=== PATIENT | female | born 1940 | race Caucasian/White ===

== ENCOUNTER 2018-08-25 04:23 | Emergency (ER) | payer MEDICARE, OTHER ==
[2018-08-25 04:36] VITALS: BMI 26.5
--- NOTE | 2018-08-25 04:51 | PDOC ---
History of Present Illness - General Chief Complaint: Blood Pressure Problem Stated Complaint: HIGH BLOOD PRESSURE Time Seen by Provider: 08/25/18 04:35 - History of Present Illness Initial Comments: 77yo F with PMH of HTN, CHF, COPD presenting with hypertension. Patient states she felt nauseous and lightheaded around 6pm. She also had epigastric pain which she attributes to gas. Patient was concerned for high blood pressure and activated her life alert notification. EMS came and noted her blood pressure to be 182/92. Patient has taken her medicines at home as instructed by her primary care physician. Denies chest pain. She has shortness of breath at baseline. No headache, no vision changes. Not currently nauseous. Endorses urinary frequency , but no dysuria or hematuria. Past History - Past Medical History Allergies/Adverse Reactions: Allergies Allergy/AdvReac Type Severity Reaction Status Date / Time No Known Allergies Allergy Verified 08/25/18 04:35 - Suicide/Smoking/Psychosocial Hx Smoking History: Never smoked Have you smoked in the past 12 months: No Information on smoking cessation initiated: No Hx Alcohol Use: No Drug/Substance Use Hx: No Review of Systems - Review of Systems Comments:: Constitutional: no fever, no chills HEENT: no throat pain, no dysphagia Cardiovascular: no chest pain, no palpitations Respiratory: no cough, +shortness of breath Gastrointestinal: +abdominal pain, +nausea Genitourinary: no dysuria, +frequency Musculoskeletal: no myalgia, no arthralgia Skin: no rash, no itching Neurologic: no headache, no vision changes *Physical Exam - Vital Signs Last Vital Signs Temp Pulse Resp BP Pulse Ox 98.9 F 90 18 159/78 97 08/25/18 04:35 08/25/18 04:35 08/25/18 04:35 08/25/18 04:35 08/25/18 04:35 - Physical Exam Comments: General: Awake, alert, and fully oriented, in no acute distress Head: No signs of trauma Eyes: EOMI, sclera anicteric ENT: Moist mucus membranes Neck: Normal ROM, supple Lungs: Lungs clear, Normal breath sounds Cardio: Regular rhythm, S1 and S2 present Abdomen: Soft, nontender, nondistended. Ventral hernia noted. No guarding, no rebound, no masses Extremities: Normal range of motion, Distal pulses present. No edema. SKIN: Warm, Dry, normal turgor Neurologic: Cranial nerves II through XII grossly intact. Normal speech Moderate Sedation - Procedure Monitoring Vital Signs: Procedure Monitoring Vital Signs Temperature 98.9 F 08/25/18 04:35 Pulse Rate 90 08/25/18 04:35 Respiratory Rate 18 08/25/18 04:35 Blood Pressure 159/78 08/25/18 04:35 O2 Sat by Pulse Oximetry (%) 97 08/25/18 04:35 ED Treatment Course - LABORATORY CBC & Chemistry Diagram: 08/25/18 05:18 08/25/18 04:46 Medical Decision Making - Medical Decision Making 77yo F with PMH of HTN, CHF, COPD presenting with hypertension at home. DDX including but not limited to hypertensive urgency vs emergency, impaired renal function, UTI, ACS CBC, CMP, Cardiac Profile, UA, UCx 08/25/18 06:07 No anemia or leukocytosis Coags WNL Cr=0.8 Tpn <0.02 EKG: rate 76, WTc 461, NSR, LBBB (present on previous EKG) Workup thus far with no signs of end-organ damage- kidney function normal, negative troponin Pending UA 08/25/18 06:27 UA negative for infection Patient discharged 08/25/18 07:30 *DC/Admit/Observation/Transfer Diagnosis at time of Disposition: Hypertension Qualifiers: Hypertension type: unspecified Qualified Code(s): I10 - Essential (primary) hypertension - Discharge Dispostion Disposition: HOME Condition at time of disposition: Stable - Referrals Referrals: [facility] [place] [facility] [place] [Provider Group] - Patient Instructions Printed Discharge Instructions: DI for High Blood Pressure Additional Instructions: You came into the ED for high blood pressure. We performed blood work which was normal. Follow-up with a primary care doctor this week to discuss this ED visit and to further evaluate your high blood pressure. Your workup is not complete until you do so. Call and make an appointment at the number provided. We have referred you to the [facility]. Immediate medical attention is required if you have: any severe headaches, vision changes, develop high fevers, have chest pain or shortness of breath, or any other new or concerning symptoms. If you think you are having an emergency, call for emergency medical services or present to the emergency department right away. === Entraste en el servicio de urgencias por presin arterial marcelle. Realizamos un anlisis de kelly que era normal. Deidra un seguimiento con un mdico de atencin primaria esta semana para hablar sobre esta visita al ED y para evaluar ms a fondo garcia presin arterial marcelle. Garcia preparacin no est completa hasta que lo deidra. Llame y deidra yolanda dayna en el nmero proporcionado. Te hemos referido a la [facility]. Se requiere atencin mdica inmediata si tiene: algn dolor de romeo arely, cambios en la visin, desarrollo de fiebre marcelle, dolor en el pecho o falta de aire, o cualquier otro sntoma nuevo o relacionado. Si sepideh que tiene yolanda emergencia, llame para solicitar servicios mdicos de emergencia o presente al departamento de emergencias de inmediato. - Post Discharge Activity
--- NOTE | 2018-08-25 05:33 | PDOC ---
Attending Attestation - Resident Resident Name: Kat Gomes - ED Attending Attestation I have performed the following: I have examined & evaluated the patient, The case was reviewed & discussed with the resident, I agree w/resident's findings & plan, Exceptions are as noted - HPI HPI: 08/25/18 05:27 77-year-old female history of hypertension, COPD presents with elevated blood pressure. Patient reports that she was in her usual state health when approximately in the evening she started feeling somewhat dizzy. She felt somewhat nauseous but denied any chest pain or new shortness of breath. Denies recent illnesses but does endorse some mild chills. Also reports urinary frequency but denies dysuria. Reports some abdominal cramping but now resolved. Denies vomiting. Pt was concerned for her BP so called 911. - Physicial Exam PE: 08/25/18 05:31 GENERAL: Awake, alert, and fully oriented, in no acute distress HEAD: No signs of trauma EYES: EOMI, sclera anicteric, conjunctiva clear ENT: Auricles normal inspection, hearing grossly normal, nares patent NECK: Normal ROM, supple LUNGS: Breath sounds equal, clear to auscultation bilaterally. No wheezes, and no crackles HEART: Regular rate and rhythm, normal S1 and S2, no murmurs, rubs or gallops ABDOMEN: Soft, nontender, No guarding, no rebound. No masses EXTREMITIES: Normal range of motion, no edema. No clubbing or cyanosis. No cords, erythema, or tenderness NEUROLOGICAL: Cranial nerves II through XII grossly intact. Normal speech SKIN: Warm, Dry, normal turgor, no rashes or lesions noted. - Medical Decision Making 08/25/18 05:34 Vital Signs Temp Pulse Resp BP Pulse Ox 98.9 F 90 18 159/78 97 08/25/18 04:35 08/25/18 04:35 08/25/18 04:35 08/25/18 04:35 08/25/18 04:35 Pt with elevated BP in setting of urinary frequency. Will r/o UTI. BP now 159/78. No chest pain or SOB. Pt now asymptomatic. Will obtain labs, ECG, UA. If workup negative, pt can be d/c with PMD followup. 08/25/18 06:33 CBC, BMP 08/25/18 05:18 08/25/18 04:46 CMP Sodium 142 mmol/L (136-145) 08/25/18 04:46 Potassium 4.4 mmol/L (3.5-5.1) 08/25/18 04:46 Chloride 109 mmol/L (98-107) H 08/25/18 04:46 Carbon Dioxide 28 mmol/L (21-32) 08/25/18 04:46 Anion Gap 5 MMOL/L (8-16) L 08/25/18 04:46 BUN 12 mg/dL (7-18) 08/25/18 04:46 Creatinine 0.8 mg/dL (0.55-1.3) 08/25/18 04:46 Creat Clearance w eGFR > 60 (>60) 08/25/18 04:46 Random Glucose 101 mg/dL (74-106) 08/25/18 04:46 Calcium 9.8 mg/dL (8.5-10.1) 08/25/18 04:46 Total Bilirubin 0.2 mg/dL (0.2-1) 08/25/18 04:46 AST 16 U/L (15-37) 08/25/18 04:46 ALT 21 U/L (13-61) 08/25/18 04:46 Alkaline Phosphatase 124 U/L (45-117) H 08/25/18 04:46 Creatine Kinase 77 U/L (26-192) 08/25/18 04:46 Troponin I < 0.02 ng/ml (0.00-0.05) 08/25/18 04:46 Total Protein 7.5 g/dl (6.4-8.2) 08/25/18 04:46 Albumin 3.8 g/dl (3.4-5.0) 08/25/18 04:46 Heart Score/ECG Review #1 ECG reviewed & interpreted by me at: 04:35 08/25/18 05:33 NSR 76, LBBB, scarbossa negative, QTC 461 msec
[2018-08-25 05:46] LABS: BASO % 0.5 % (0-2.0); EOS % 5.7 % (0-4.5); HEMATOCRIT 38.4 % (32.4-45.2); HEMOGLOBIN 13.5 GM/dL (10.7-15.3); LYMPH % 44.6 % (8-40); MCH 29.6 pg (25.7-33.7); MCHC 35.1 g/dl (32.0-36.0); MEAN CELL VOLUME 84.2 fl (80-96); MEAN PLT VOLUME 8.1 fl (7.5-11.1); MONO % 5.6 % (3.8-10.2); NEUT % 43.6 % (42.8-82.8); PLATELET COUNT 266 K/MM3 (134-434); RBC 4.56 M/mm3 (3.60-5.2); WHITE BLOOD COUNT 7.2 K/mm3 (4.0-10.0)
[2018-08-25 06:13] LABS: ALBUMIN 3.8 g/dl (3.4-5.0); ALK PHOS 124 U/L (45-117); ANION GAP 5 MMOL/L (8-16); BILIRUBIN,TOTAL 0.2 mg/dL (0.2-1); BLOOD UREA NITROGEN 12 mg/dL (7-18); CALCIUM 9.8 mg/dL (8.5-10.1); CHLORIDE 109 mmol/L (98-107); CO2 28 mmol/L (21-32); CREATININE 0.8 mg/dL (0.55-1.3); GLUCOSE,RANDOM 101 mg/dL (74-106); POTASSIUM 4.4 mmol/L (3.5-5.1); SGOT/AST 16 U/L (15-37); SGPT/ALT 21 U/L (13-61); SODIUM 142 mmol/L (136-145); TOT PROT 7.5 g/dl (6.4-8.2)
[2018-08-25] MEDS ORDERED: SODIUM CHLORIDE 1,000 ML IV STA (06:13)
[2018-08-25 06:22] LABS: INR 0.89 (0.83-1.09); PROTHROMBIN TIME (PATIENT) 10.5 SEC (9.7-13.0)
[2018-08-25 06:38] VITALS: BP 153/74; PULSE 79; TEMP 98.4
[2018-08-25 06:51] LABS: URINE APPEARANCE CLEAR; URINE BILIRUBIN NEGATIVE (<2.0 mg/dL); URINE COLOR COLORLESS; URINE GLUCOSE (UA) NEGATIVE (NEGATIVE); URINE KETONE NEGATIVE (NEGATIVE); URINE LEUK ESTERASE NEGATIVE (NEGATIVE); URINE NITRITE NEGATIVE (NEGATIVE); URINE PROTEIN NEGATIVE (NEGATIVE); URINE UROBILINOGEN NEGATIVE mg/dL (0.2-1.0)
--- NOTE | 2018-08-25 11:50 | EKG ---
Test Reason : Blood Pressure : / mmHG Vent. Rate : 076 BPM Atrial Rate : 076 BPM P-R Int : 174 ms QRS Dur : 152 ms QT Int : 410 ms P-R-T Axes : 046 005 146 degrees QTc Int : 461 ms NORMAL SINUS RHYTHM LEFT BUNDLE BRANCH BLOCK ABNORMAL ECG WHEN COMPARED WITH ECG OF 16-DEC-2006 08:28, NO SIGNIFICANT CHANGE WAS FOUND Confirmed by TERRENCE GALAVIZ MD ([id number]) on 08/25/2018 11:50:02 AM Referred By: Confirmed By:TERRENCE GALAVIZ MD
== END 2018-08-25 09:09 | disposition home or self-care (01) ==
LOC: JER 04:23
PROC: 3E0337Z Introduction of Electrolytic and Water Balance Substance into Peripheral Vein, Percutaneous Approach (ICD-10-PCS; principal; 2018-08-25)
DX: I10 Essential (primary) hypertension (principal); I50.9 Heart failure, unspecified; J44.9 Chronic obstructive pulmonary disease, unspecified
CPT/HCPCS: 36415; 80053; 81003; 82550; 84484; 85025; 85610; 85730; 87086; 93005; 93010; 96360; 99281-25; J7030

== ENCOUNTER 2019-04-20 12:27 | Observation (INO) | payer MEDICARE, OTHER ==
--- NOTE | 2019-04-20 12:56 | PDOC ---
History of Present Illness - General Stated Complaint: SYNCOPE/NEAR SYNCOPE Time Seen by Provider: 04/20/19 12:36 - History of Present Illness Initial Comments: 04/20/19 13:18 78Fwith PMH of HTN, CHF, COPD presenting with episode of lightheadedness, loss of consciousness, diaphoresis and urine incontinence while sitting down at [employer] today. She started feeling lightheaded with subtle vision changes, then passed out for a few minutes before becoming aware of her surroundings again however she was unable to see anything when she did for a few minutes. Family noticed that her teeth were clenched and chattering during the time she was unresponsive. Now feels much better, no neurological focal deficit. Fingerstick in the field by EMS was 118 Over the past week she had 3 other episodes of presyncope. No history of seizures. Denies any headache, chest pain sob, weakness, dysuria, fever. Last travel by plane was 1 month ago to the . Was a smoker 7 years ago 1 pack a day. Family history of heart attack. No hyperlipidemia. Surgical history: Catheterization of the heart 10 years ago., and gallbladder surgery. Past History - Past Medical History Allergies/Adverse Reactions: Allergies Allergy/AdvReac Type Severity Reaction Status Date / Time No Known Allergies Allergy Verified 04/20/19 12:47 Home Medications: Ambulatory Orders Aspirin [Aspirin EC] 81 mg PO DAILY 04/20/19 Docusate Sodium [Docusate 100 mg] 100 mg PO DAILY 04/20/19 Furosemide [Lasix -] 20 mg PO DAILY 04/20/19 Loratadine 10 mg PO DAILY 04/20/19 Umeclidinium [place] [Incruse Ellipta] 62.5 mcg IH DAILY 04/20/19 Anemia: No COPD: Yes - Surgical History Gastric Stapling: No Neurologic Surgery: No - Psycho Social/Smoking Cessation Hx Smoking History: Never smoked Have you smoked in the past 12 months: No Hx Alcohol Use: No Drug/Substance Use Hx: No Review of Systems - Review of Systems Able to Perform ROS?: Yes Is the patient limited Mongolian proficient: Yes Constitutional: Yes: See HPI, Diaphoresis. No: Weakness HEENTM: Yes: See HPI, Recent change in vision Respiratory: No: Symptoms reported Cardiac (ROS): Yes: See HPI, Syncope ABD/GI: No: Symptoms Reported : No: Symptoms Reported Integumentary: No: Symptoms Reported Neurological: Yes: See HPI All Other Systems: Reviewed and Negative *Physical Exam - Physical Exam General Appearance: Yes: Obese. No: Apparent Distress, Alcohol on Breath, Intoxicated HEENT: positive: EOMI, YOLANDA, Normal ENT Inspection Respiratory/Chest: positive: Lungs Clear, Normal Breath Sounds. negative: Chest Tender, Respiratory Distress Cardiovascular: positive: Regular Rhythm, Regular Rate, S1, S2 Gastrointestinal/Abdominal: positive: Normal Bowel Sounds, Soft, Protuberent. negative: Tender Musculoskeletal: positive: Normal Inspection. negative: CVA Tenderness Extremity: positive: Normal Capillary Refill, Normal Inspection, Normal Range of Motion Integumentary: positive: Normal Color, Dry, Other (Positive skin tenting) Neurologic: positive: Fully Oriented, Alert, Normal Mood/Affect, Normal Response , Motor Strength 5/5 Heart Score/ECG Review - History History: Moderately suspicious - Electrocardiogram EKG: Normal - Age Age: >/= 65 - Risk Factors Risk Factors Heart Score: No Hx Hypercholesterolemia, Yes Hx Hypertension, No Hx Diabetes, Yes Smoking History, Yes Positive family hx of cardiac disease, Yes Hx Obesity Based on the list above the patient has:: >/=3 risk factors or Hx atherosclerotic disease ED Treatment Course - LABORATORY CBC & Chemistry Diagram: 04/20/19 13:00 04/20/19 13:00 Medical Decision Making - Medical Decision Making 04/20/19 13:36 78Fwith PMH of HTN, CHF, COPD presenting with episode of lightheadedness, loss of consciousness, diaphoresis and urine incontinence while sitting down at [employer] today. We are considering seizure vs head bleed, WI, dehydration/vasavagal episode. Suspicion of partial seizure due to teeth clenching/vision loss/urinary incontinence although short post-ictal period. Head bleed possible, will evaluate with ct head. Will send ekg, basic labs and trops and well as BNP as diaphoresis is concerning for possible WI + elevated heart score and cath history. cxr: Single apical lordotic view reveals a large heart, prominent paty, normal aorta and clear lung mccormick. The angles are sharp. The soft tissues are intact. There are some degenerative changes. There are no prior studies for comparison. Correlation recommended. EKG: Normal sinus rhythm, LBBB, negative Sgarbossa. Head CT pending 04/20/19 14:32 All labs within normal limits. Patient will be admitted to tele obs. 04/20/19 14:58 ct read: [id number] volume loss without CT evidence of acute intracranial pathology. Correlate increased to determine further evaluation and follow-up. Patient admitted to Dr. Joseph Consult placed to Dr. Gaming. Discharge - Discharge Information Problems reviewed: Yes Clinical Impression/Diagnosis: Syncope, Seizure Condition: Improved - Admission Yes - Follow up/Referral Referrals: ON STAFF,NOT [Primary Care Provider] - - Patient Discharge Instructions - Post Discharge Activity NIH Stroke Scale - Last Known Well Date/Time & Onset Date Last Known Well: 04/20/19 Time Last Known Well: 11:45 - Initial Evaluation Level of consciousness: Alert Ask patient the month and their age: Answers both correctly Ask patient to open & close eyes; make fist and let go: Obeys both correctly Best gaze (horizontal eye movement): Normal Visual field testing: No visual field loss Facial paresis (Show teeth/raise eyebrows/close eyes tight): Normal symmetrical movement Motor Function: Left Arm: Normal Motor Function: Right Arm: Normal (extends arm 90 (or 45) degrees for 10 seconds without drift Motor Function: Left Leg: Normal (extends leg 30 degrees for 5 seconds without drift) Motor Function: Right Leg: Normal (extends leg 30 degrees for 5 seconds without drift) Limb Ataxia: No ataxia Sensory(Use pinprick test arms,legs,trunk,face/side to side): Normal Best language (Describe picture, name items, read sentences): No Aphasia Dysarthria (read several words): Normal articulation Extinction and Inattention: No abnormality - Total Score NIH Stroke Scale Score: 0 tPA Exclusion Checklist 0-3hr - Time Elapsed Date last known well: 04/20/19 Time last known well: 11:45 Elaspsed time: Day(s) and 3 Hour(s) and 13 Minutes - Exclusion Criteria 0-3hr SBP greater than 185 or DBP greater than 110mmHg despite tx: No Recent IC/spinal surgery,head trauma or stroke w/in last 3mo: No Hx of previous IC hemorrhage, IC neoplasm, AVM or aneurysm: No Active internal bleeding: No Blding diathesis(low plt ct, inc PTT,INR>1.7 or use of NOAC): No Symptoms suggest subarachnoid hemorrhage: No CT demonstrates multilobar infarct(>1/3 cerebral hemiphere): No Arterial puncture at noncompressible site in previous 7 days: No - Relative Exclusion Criteria 0-3h Life expectancy <1yr/severe co-morbid illness/EMBLEM MAKER on admit: No : No Patient/family refused: No Rapid improvement: Yes Stroke severity too mild: Yes Recent acute WI (w/in previous 3 months): No Seizure at onset with postictal residual neuro impairments: No Major surgery or serious trauma w/in previous 14 days: No Recent GI or hemorrhage (w/in previous 21 days): No - Ineligibility reason(s) Reasons No tPA given: See reason(s) noted above
[2019-04-20 13:24] LABS: BASO % 0.5 % (0-2.0); EOS % 4.3 % (0-4.5); HEMATOCRIT 41.6 % (32.4-45.2); HEMOGLOBIN 14.6 GM/dL (10.7-15.3); LYMPH % 24.4 % (8-40); MCH 30.4 pg (25.7-33.7); MCHC 35.2 g/dl (32.0-36.0); MEAN CELL VOLUME 86.3 fl (80-96); NEUT % 64.8 % (42.8-82.8); PLATELET COUNT 322 K/MM3 (134-434); RBC 4.82 M/mm3 (3.60-5.2); RDW 14.5 % (11.6-15.6); WHITE BLOOD COUNT 11.2 K/mm3 (4.0-10.0)
[2019-04-20] MEDS ORDERED: SODIUM CHLORIDE 500 ML IV STA (13:24)
[2019-04-20 13:46] LABS: HYALINE CASTS 14 /lpf (0-8); URINE APPEARANCE CLOUDY; URINE BILIRUBIN NEGATIVE (NEGATIVE); URINE COLOR YELLOW; URINE GLUCOSE (UA) NEGATIVE (NEGATIVE); URINE KETONE NEGATIVE (NEGATIVE); URINE LEUK ESTERASE 1+ (NEGATIVE); URINE NITRITE NEGATIVE (NEGATIVE); URINE PROTEIN 1+ (NEGATIVE); URINE RBC 2 /hpf (0-4); URINE WBC 14 /hpf (0-5)
[2019-04-20 14:03] LABS: ALK PHOS 109 U/L (45-117); ANION GAP 5 MMOL/L (8-16); BILIRUBIN,TOTAL 0.4 mg/dL (0.2-1); CHLORIDE 107 mmol/L (98-107); CO2 28 mmol/L (21-32); GLUCOSE,RANDOM 111 mg/dL (74-106); POTASSIUM 4.2 mmol/L (3.5-5.1); SGOT/AST 18 U/L (15-37); SGPT/ALT 22 U/L (13-61); SODIUM 140 mmol/L (136-145); TOT PROT 7.8 g/dl (6.4-8.2)
--- NOTE | 2019-04-20 14:15 | PDOC ---
Attending Attestation - Resident Resident Name: Mahesh Kline - ED Attending Attestation I have performed the following: I have examined & evaluated the patient, The case was reviewed & discussed with the resident, I agree w/resident's findings & plan, Exceptions are as noted - HPI HPI: 04/20/19 14:10 78yo female with hx of htn presents for eval of a syncopal vs seizure activity while at [employer] today. Pt arrives with her family who states she slumped over in [employer] and became sweaty. Pt denies cp/sob. Denies kennedy. States she felt her vision get blurry prior to the episode. Per the family, her lips shook and her teeth were chattering. States she also loss control of her bladder and urinated herself. Pt denies abd pain. States decreased po intake this week because she just wasn't hungry. States 4 near syncopal dizzy episodes at home where she felt she would pass out, but never did. No other complaints. - Physicial Exam PE: 04/20/19 14:12 Gen: aaox3, nad heent: PERRL, EOMI, MMM, posterior pharynx clear neck: supple heart: +s1s2 reg lungs: cta b/l abd: soft, nt/nd +bs ext: no c/c/e neuro: cn ii-xii grossly intact, no focal deficits, muscle strength 5/5 UE and LE - Medical Decision Making 04/20/19 14:13 a/p: 78yo female with a syncopal vs seizure today while at [employer] -suspect more likely convulsive syncope with the 4 episodes of dizziness and near syncope this week -will send labs, head ct, cxr, ua -ekg -will start ivf hydration -all docs in [place] -will need obs vs admission for further eval -family updated and agree with the plan 04/20/19 14:14 no elevated wbc, neg trop 04/20/19 14:48 resident discussed the case with Dr. Madrigal who accepts pt to service 04/20/19 15:[address] boone Heart Score/ECG Review - ECG Intrepretation Comment:: 04/20/19 14:14 sinus at 71, lbbb, no acute st/t wave findings, unchanged from prior
[2019-04-20 14:19] LABS: MAGNESIUM 2.2 mg/dL (1.8-2.4)
--- NOTE | 2019-04-20 15:11 | HP ---
CHIEF COMPLAINT: multiple syncopes PCP:Haley Herman HISTORY OF PRESENT ILLNESS: 78yo female with hx of htn presents for eval of a syncopal vs seizure activity while at [employer] today. Pt arrives with her family who states she slumped over in [employer] and became sweaty. Pt denies cp/sob. Denies kennedy. States she felt her vision get blurry prior to the episode. Per the family, her lips shook and her teeth were chattering. States she also loss control of her bladder and urinated herself. Pt denies abd pain. States decreased po intake this week because she just wasn't hungry. States 4 near syncopal dizzy episodes at home where she felt she would pass out, but never did. No other complaints. In er her blood work shows pt has normal ct head and chest x rays but her ua is has mild uti ER course was notable for: (1)syncope (2)normal ct head (3)mild uti Recent Travel: none PAST MEDICAL HISTORY:copd,oa PAST SURGICAL HISTORY:none Social History: Smoking:none Alcohol:none Drugs: none Allergies No Known Allergies Allergy (Verified 04/20/19 12:47) HOME MEDICATIONS: Home Medications Medication Instructions Recorded Aspirin [Aspirin EC] 81 mg PO DAILY 04/20/19 Docusate Sodium [Docusate 100 mg] 100 mg PO DAILY 04/20/19 Furosemide [Lasix -] 20 mg PO DAILY 04/20/19 Loratadine 10 mg PO DAILY 04/20/19 Umeclidinium [place] [Incruse 62.5 mcg IH DAILY 04/20/19 Ellipta] REVIEW OF SYSTEMS CONSTITUTIONAL: Absent: fever, chills, diaphoresis, generalized weakness, malaise, loss of appetite, weight change HEENT: Absent: rhinorrhea, nasal congestion, throat pain, throat swelling, difficulty swallowing, mouth swelling, ear pain, eye pain, visual changes CARDIOVASCULAR: Absent: chest pain, syncope, palpitations, irregular heart rate, lightheadedness , peripheral edema RESPIRATORY: Absent: cough, shortness of breath, dyspnea with exertion, orthopnea, wheezing, stridor, hemoptysis GASTROINTESTINAL: Absent: abdominal pain, abdominal distension, nausea, vomiting, diarrhea, constipation, melena, hematochezia GENITOURINARY: Absent: dysuria, frequency, urgency, hesitancy, hematuria, flank pain, genital pain MUSCULOSKELETAL: Absent: myalgia, arthralgia, joint swelling, back pain, neck pain SKIN: Absent: rash, itching, pallor HEMATOLOGIC/IMMUNOLOGIC: Absent: easy bleeding, easy bruising, lymphadenopathy, frequent infections ENDOCRINE: Absent: unexplained weight gain, unexplained weight loss, heat intolerance, cold intolerance NEUROLOGIC: Absent: headache, focal weakness or paresthesias, dizziness, unsteady gait, seizure, mental status changes, present bladder incontinence or no bowel incontinence PSYCHIATRIC: Absent: anxiety, depression, suicidal or homicidal ideation, hallucinations. PHYSICAL EXAMINATION Vital Signs - 24 hr 04/20/19 04/20/19 12:36 13:15 Temperature 98 F Pulse Rate 75 Pulse Rate [ 65 Right side Sitting] Pulse Rate [ 63 Right side Standing] Pulse Rate [ 70 Right side Supine] Respiratory 18 Rate Blood Pressure 155/64 Blood Pressure 158/70 [Right side Sitting] Blood Pressure 142/73 [Right side Standing] Blood Pressure 157/64 [Right side Supine] O2 Sat by Pulse 100 Oximetry (%) GENERAL: Awake, alert, and fully oriented, in no acute distress. HEAD: Normal with no signs of trauma. EYES: Pupils equal, round and reactive to light, extraocular movements intact, sclera anicteric, conjunctiva clear. No lid lag. EARS, NOSE, THROAT: Ears normal, nares patent, oropharynx clear without exudates. Moist mucous membranes. NECK: Normal range of motion, supple without lymphadenopathy, JVD, or masses. LUNGS: Breath sounds equal, clear to auscultation bilaterally. No wheezes, and no crackles. No accessory muscle use. HEART: Regular rate and rhythm, normal S1 and S2 without murmur, rub or gallop. ABDOMEN: Soft, nontender, not distended, normoactive bowel sounds, no guarding, no rebound, no masses. No hepatomegaly or splenomegaly. MUSCULOSKELETAL: Normal range of motion at all joints. No bony deformities or tenderness. No CVA tenderness. UPPER EXTREMITIES: 2+ pulses, warm, well-perfused. No cyanosis. No clubbing. No peripheral edema. LOWER EXTREMITIES: 2+ pulses, warm, well-perfused. No calf tenderness. No peripheral edema. NEUROLOGICAL: Cranial nerves II-XII intact. Normal speech. Normal gait. PSYCHIATRIC: Cooperative. Good eye contact. Appropriate mood and affect. SKIN: Warm, dry, normal turgor, no rashes or lesions noted, normal capillary refill. Laboratory Results - last 24 hr 04/20/19 04/20/19 04/20/19 13:00 13:00 13:00 WBC 11.2 H RBC 4.82 Hgb 14.6 Hct 41.6 MCV 86.3 MCH 30.4 MCHC 35.2 RDW 14.5 Plt Count 322 D MPV 8.0 Absolute Neuts (auto) 7.3 Neutrophils % 64.8 D Lymphocytes % 24.4 D Monocytes % 6.0 Eosinophils % 4.3 Basophils % 0.5 Nucleated RBC % 0 Sodium 140 Potassium 4.2 Chloride 107 Carbon Dioxide 28 Anion Gap 5 L BUN 14.0 Creatinine 1.0 Est GFR (CKD-EPI)AfAm 61.62 Est GFR (CKD-EPI)NonAf 53.17 Random Glucose 111 H Lactic Acid Calcium 10.0 Magnesium 2.2 Total Bilirubin 0.4 AST 18 ALT 22 Alkaline Phosphatase 109 Troponin I < 0.02 B-Natriuretic Peptide Total Protein 7.8 Albumin 4.0 Urine Color Yellow Urine Appearance Cloudy Urine pH 6.0 Ur Specific [place] 1.020 Urine Protein 1+ H Urine Glucose (UA) Negative Urine Ketones Negative Urine Blood Negative Urine Nitrite Negative Urine Bilirubin Negative Urine Urobilinogen 1.0 Ur Leukocyte Esterase 1+ H Urine WBC (Auto) 14 Urine RBC (Auto) 2 Urine Casts (Auto) 14 U Epithel Cells (Auto) 22.0 Urine Bacteria (Auto) 858.0 04/20/19 04/20/19 13:00 13:00 WBC RBC Hgb Hct MCV MCH MCHC RDW Plt Count MPV Absolute Neuts (auto) Neutrophils % Lymphocytes % Monocytes % Eosinophils % Basophils % Nucleated RBC % Sodium Potassium Chloride Carbon Dioxide Anion Gap BUN Creatinine Est GFR (CKD-EPI)AfAm Est GFR (CKD-EPI)NonAf Random Glucose Lactic Acid 1.2 Calcium Magnesium Total Bilirubin AST ALT Alkaline Phosphatase Troponin I B-Natriuretic Peptide 233.4 Total Protein Albumin Urine Color Urine Appearance Urine pH Ur Specific [place] Urine Protein Urine Glucose (UA) Urine Ketones Urine Blood Urine Nitrite Urine Bilirubin Urine Urobilinogen Ur Leukocyte Esterase Urine WBC (Auto) Urine RBC (Auto) Urine Casts (Auto) U Epithel Cells (Auto) Urine Bacteria (Auto) ASSESSMENT/PLAN: 78yo female with hx of htn presents for eval of a syncopal vs seizure activity while at [employer] today. admit to tele and will do cardiac w/u and carotid sonogram. echocardiogram EEG r/o siezure copd restart incurse inhaller uti start on levaquin 250 m g daily chf h/o will resume the lasix H/o constipations babatunde restat on colace DVT PROPHYSLAXIS LOVENOX S/Q Visit type - Emergency Visit Emergency Visit: Yes ED Registration Date: 04/20/19 Care time: The patient presented to the Emergency Department on the above date and was hospitalized for further evaluation of their emergent condition. - New Patient This patient is new to me today: Yes Date on this admission: 04/20/19 - Critical Care Critical Care patient: No
[2019-04-20 16:42] VITALS: BMI 35.2
[2019-04-20] MEDS ORDERED: FLU VACCINE QUAD 60 MCG/0.5 ML (MDV 19-20) IM ONE (17:00)
--- NOTE | 2019-04-21 08:49 | PN ---
Teaching Attending Note Name of Resident: Raffi Whitaker ATTENDING PHYSICIAN STATEMENT I saw and evaluated the patient. I reviewed the resident's note and discussed the case with the resident. I agree with the resident's findings and plan as documented. SUBJECTIVE: OBJECTIVE: Vital Signs Period Temp Pulse Resp BP Sys/De Souza Pulse Ox Last 24 Hr 98 F-98.7 F 63-82 18-20 119-158/46-79 94-100 HEART: LUNGS: ABDOMEN: EXTREMITIES: Laboratory Results - last 24 hr 04/20/19 04/20/19 04/20/19 13:00 13:00 13:00 WBC 11.2 H RBC 4.82 Hgb 14.6 Hct 41.6 MCV 86.3 MCH 30.4 MCHC 35.2 RDW 14.5 Plt Count 322 D MPV 8.0 Absolute Neuts (auto) 7.3 Neutrophils % 64.8 D Lymphocytes % 24.4 D Monocytes % 6.0 Eosinophils % 4.3 Basophils % 0.5 Nucleated RBC % 0 Sodium 140 Potassium 4.2 Chloride 107 Carbon Dioxide 28 Anion Gap 5 L BUN 14.0 Creatinine 1.0 Est GFR (CKD-EPI)AfAm 61.62 Est GFR (CKD-EPI)NonAf 53.17 Random Glucose 111 H Lactic Acid Calcium 10.0 Magnesium 2.2 Total Bilirubin 0.4 AST 18 ALT 22 Alkaline Phosphatase 109 Troponin I < 0.02 B-Natriuretic Peptide Total Protein 7.8 Albumin 4.0 Urine Color Yellow Urine Appearance Cloudy Urine pH 6.0 Ur Specific [place] 1.020 Urine Protein 1+ H Urine Glucose (UA) Negative Urine Ketones Negative Urine Blood Negative Urine Nitrite Negative Urine Bilirubin Negative Urine Urobilinogen 1.0 Ur Leukocyte Esterase 1+ H Urine WBC (Auto) 14 Urine RBC (Auto) 2 Urine Casts (Auto) 14 U Epithel Cells (Auto) 22.0 Urine Bacteria (Auto) 858.0 04/20/19 04/20/19 13:00 13:00 WBC RBC Hgb Hct MCV MCH MCHC RDW Plt Count MPV Absolute Neuts (auto) Neutrophils % Lymphocytes % Monocytes % Eosinophils % Basophils % Nucleated RBC % Sodium Potassium Chloride Carbon Dioxide Anion Gap BUN Creatinine Est GFR (CKD-EPI)AfAm Est GFR (CKD-EPI)NonAf Random Glucose Lactic Acid 1.2 Calcium Magnesium Total Bilirubin AST ALT Alkaline Phosphatase Troponin I B-Natriuretic Peptide 233.4 Total Protein Albumin Urine Color Urine Appearance Urine pH Ur Specific [place] Urine Protein Urine Glucose (UA) Urine Ketones Urine Blood Urine Nitrite Urine Bilirubin Urine Urobilinogen Ur Leukocyte Esterase Urine WBC (Auto) Urine RBC (Auto) Urine Casts (Auto) U Epithel Cells (Auto) Urine Bacteria (Auto) Current Medications Generic Name Dose Route Start Last Admin Trade Name Freq PRN Reason Stop Dose Admin Aspirin 81 mg 04/21/19 10:00 Ecotrin - PO DAILY [facility] Docusate Sodium 100 mg 04/21/19 10:00 Colace - PO DAILY [facility] Enoxaparin Sodium 40 mg 04/21/19 10:00 Lovenox - SQ DAILY [facility] Furosemide 20 mg 04/21/19 10:00 Lasix - PO DAILY [facility] Levofloxacin 250 mg 04/20/19 15:15 04/21/19 06:00 Levaquin - PO 250 mg DAILY@0600 [facility] Administration Loratadine 10 mg 04/21/19 10:00 Claritin - PO DAILY [facility] Non-Formulary Medication 62.5 mcg 04/21/19 10:00 Umeclidinium [place] [Incruse Ellipta] IH DAILY [facility] ASSESSMENT AND PLAN: This is an 78 year old woman with a history of HTN, CHF, COPD who presented to the ED after passing out while sitting in [employer]. The episode was associated with urinary incontinence and was preceded by lightheadedness. 1. Syncope, possible seizure 2. Possible UTI 3. HTN 4. CHF 5. COPD 6. Obesity with BMI 35.2
[2019-04-21] MEDS ORDERED: PATIENT'S OWN MEDICATION (NON-FORMULARY) (Umeclidinium Bromide [Incruse Ellipta] 62.5 MCG) IH SCH (10:00)
[2019-04-21] MEDS ORDERED: FUROSEMIDE 20 MG TABLET (FP) PO SCH (10:00)
[2019-04-21] MEDS ORDERED: LORATADINE 10 MG PO SCH (10:00)
--- NOTE | 2019-04-21 10:07 | EKG ---
Test Reason : Blood Pressure : / mmHG Vent. Rate : 071 BPM Atrial Rate : 071 BPM P-R Int : 176 ms QRS Dur : 166 ms QT Int : 432 ms P-R-T Axes : 037 006 146 degrees QTc Int : 469 ms NORMAL SINUS RHYTHM LEFT BUNDLE BRANCH BLOCK ABNORMAL ECG WHEN COMPARED WITH ECG OF 25-AUG-2018 04:32, NO SIGNIFICANT CHANGE WAS FOUND Confirmed by PEDRO STERLING MD ([id number]) on 04/21/2019 10:06:57 AM Referred By: Confirmed By:PEDRO STERLING MD
--- NOTE | 2019-04-21 10:16 | PN ---
Physical Exam: SUBJECTIVE: Patient seen and examined. She is feeling better today. She denies dizziness, palpitations, chest pain. OBJECTIVE: Vital Signs Period Temp Pulse Resp BP Sys/De Souza Pulse Ox Last 24 Hr 98 F-98.7 F 63-82 18-20 119-158/46-79 94-100 GENERAL: The patient is awake, alert, and fully oriented, in no acute distress. LUNGS: Breath sounds equal, clear to auscultation bilaterally, no wheezes, no crackles, no accessory muscle use. HEART: Regular rate and rhythm, S1, S2 without murmur, rub or gallop. ABDOMEN: Obese, soft, nontender, nondistended, normoactive bowel sounds, no guarding, no rebound, no hepatosplenomegaly, no masses. EXTREMITIES: 2+ pulses, warm, well-perfused, no edema. NEUROLOGICAL: Cranial nerves II through XII grossly intact. Normal speech, strength 5/5 in all extremities. SKIN: Warm, dry, poor turgor, no rashes or lesions noted Laboratory Results - last 24 hr 04/20/19 04/20/19 04/20/19 13:00 13:00 13:00 WBC 11.2 H RBC 4.82 Hgb 14.6 Hct 41.6 MCV 86.3 MCH 30.4 MCHC 35.2 RDW 14.5 Plt Count 322 D MPV 8.0 Absolute Neuts (auto) 7.3 Neutrophils % 64.8 D Lymphocytes % 24.4 D Monocytes % 6.0 Eosinophils % 4.3 Basophils % 0.5 Nucleated RBC % 0 Sodium 140 Potassium 4.2 Chloride 107 Carbon Dioxide 28 Anion Gap 5 L BUN 14.0 Creatinine 1.0 Est GFR (CKD-EPI)AfAm 61.62 Est GFR (CKD-EPI)NonAf 53.17 Random Glucose 111 H Lactic Acid Calcium 10.0 Magnesium 2.2 Total Bilirubin 0.4 AST 18 ALT 22 Alkaline Phosphatase 109 Troponin I < 0.02 B-Natriuretic Peptide Total Protein 7.8 Albumin 4.0 Urine Color Yellow Urine Appearance Cloudy Urine pH 6.0 Ur Specific [place] 1.020 Urine Protein 1+ H Urine Glucose (UA) Negative Urine Ketones Negative Urine Blood Negative Urine Nitrite Negative Urine Bilirubin Negative Urine Urobilinogen 1.0 Ur Leukocyte Esterase 1+ H Urine WBC (Auto) 14 Urine RBC (Auto) 2 Urine Casts (Auto) 14 U Epithel Cells (Auto) 22.0 Urine Bacteria (Auto) 858.0 04/20/19 04/20/19 13:00 13:00 WBC RBC Hgb Hct MCV MCH MCHC RDW Plt Count MPV Absolute Neuts (auto) Neutrophils % Lymphocytes % Monocytes % Eosinophils % Basophils % Nucleated RBC % Sodium Potassium Chloride Carbon Dioxide Anion Gap BUN Creatinine Est GFR (CKD-EPI)AfAm Est GFR (CKD-EPI)NonAf Random Glucose Lactic Acid 1.2 Calcium Magnesium Total Bilirubin AST ALT Alkaline Phosphatase Troponin I B-Natriuretic Peptide 233.4 Total Protein Albumin Urine Color Urine Appearance Urine pH Ur Specific [place] Urine Protein Urine Glucose (UA) Urine Ketones Urine Blood Urine Nitrite Urine Bilirubin Urine Urobilinogen Ur Leukocyte Esterase Urine WBC (Auto) Urine RBC (Auto) Urine Casts (Auto) U Epithel Cells (Auto) Urine Bacteria (Auto) Active Medications Generic Name Dose Route Start Last Admin Trade Name Freq PRN Reason Stop Dose Admin Aspirin 81 mg 04/21/19 10:00 Ecotrin - PO DAILY [facility] Docusate Sodium 100 mg 04/21/19 10:00 Colace - PO DAILY [facility] Enoxaparin Sodium 40 mg 04/21/19 10:00 Lovenox - SQ DAILY [facility] Furosemide 20 mg 04/21/19 10:00 Lasix - PO DAILY [facility] Levofloxacin 250 mg 04/20/19 15:15 04/21/19 06:00 Levaquin - PO 250 mg DAILY@0600 [facility] Administration Loratadine 10 mg 04/21/19 10:00 Claritin - PO DAILY [facility] Non-Formulary Medication 62.5 mcg 04/21/19 10:00 Umeclidinium [place] [Incruse Ellipta] IH DAILY [facility] ASSESSMENT/PLAN: This is an 78 year old woman with a history of HTN, CHF, COPD who presented to the ED after passing out while sitting in [employer]. The episode was associated with urinary incontinence and was preceded by lightheadedness. 1. Syncope - Doubt seizure - Continue telemetry monitoring - Head CT shows mild to moderate volume loss - Echo, carotid dopplers pending 2. Possible UTI - Continue empiric Levaquin - Urine culture not sent 3. Dehydration - Start IV fluid and hold Lasix 4. HTN - Hold Lasix secondary to dehydration 5. CHF, probable chronic diastolic heart failure - Stable - Hold Lasix secondary to dehydration 6. COPD - Stable - Continue Incruse 6. Obesity with BMI 35.2 Visit type - Emergency Visit Emergency Visit: Yes ED Registration Date: 04/20/19 Care time: The patient presented to the Emergency Department on the above date and was hospitalized for further evaluation of their emergent condition. - New Patient This patient is new to me today: Yes Date on this admission: 04/21/19 - Critical Care Critical Care patient: No - Discharge Referral Referred to [facility] Med P.C.: No
--- NOTE | 2019-04-21 10:21 | CON.CARD ---
Consult Consult Specialty:: Cardiology Referred by:: Hospitalist Medicine Reason for Consultation:: Syncope - History of Present Illness Chief Complaint: Syncope History of Present Illness: 78yo female with hx of htn presents for after syncopal episode, family reported she slumped over in [employer] and became sweaty. Pt denies cp/sob, palpitations, orthopnea, PND or LE edema. Denies kennedy. States she felt her vision get blurry prior to the episode. Per the family, her lips shook and her teeth were chattering. States she also loss control of her bladder and urinated herself. Pt denies abd pain. States decreased po intake this week because she just wasn' t hungry. States 4 near syncopal dizzy episodes at home where she felt she would pass out, but never did. No other complaints. - History Source History Provided By: Family Member Limitations to Obtaining History: Language Barrier - Past Medical History Cardio/Vascular: Yes: CHF, HTN Pulmonary: Yes: COPD - Alcohol/Substance Use Hx Alcohol Use: No - Smoking History Smoking history: Former smoker Have you smoked in the past 12 months: No Aproximately how many cigarettes per day: 12 If you are a former smoker, when did you quit?: 8 yrs ago Home Medications - Allergies Allergies/Adverse Reactions: Allergies Allergy/AdvReac Type Severity Reaction Status Date / Time No Known Allergies Allergy Verified 04/20/19 12:47 - Home Medications Home Medications: Ambulatory Orders Aspirin [Aspirin EC] 81 mg PO DAILY 04/20/19 Docusate Sodium [Docusate 100 mg] 100 mg PO DAILY 04/20/19 Furosemide [Lasix -] 20 mg PO DAILY 04/20/19 Loratadine 10 mg PO DAILY 04/20/19 Umeclidinium [place] [Incruse Ellipta] 62.5 mcg IH DAILY 04/20/19 Review of Systems - Review of Systems Neurological: reports: Dizziness, Syncope Vital Signs: Vital Signs Temperature 98.7 F 04/21/19 00:56 Pulse Rate 64 04/21/19 00:56 Respiratory Rate 20 04/21/19 00:56 Blood Pressure 136/55 L 04/21/19 00:56 O2 Sat by Pulse Oximetry (%) 96 04/20/19 20:10 Constitutional: Yes: No Distress, Calm Neck: Yes: Supple Respiratory: Yes: Regular, CTA Bilaterally Gastrointestinal: Yes: Normal Bowel Sounds, Soft Cardiovascular: Yes: Regular Rate and Rhythm JVD: No Carotid Bruit: No Heart Sounds: Yes: S1, S2 Murmur: Yes: Systolic Murmur, Grade 1 Edema: No - Other Data Labs, Other Data: CBC, BMP 04/20/19 13:00 04/20/19 13:00 Troponin, BNP 04/20/19 04/20/19 13:00 13:00 Troponin I < 0.02 B-Natriuretic Peptide 233.4 Troponin, BNP 04/20/19 04/20/19 13:00 13:00 Troponin I < 0.02 B-Natriuretic Peptide 233.4 NSR @ 71 LBBB similar to previous Ejection Fraction %: LVEF > or = 40 % Imaging - Results Chest X-ray: Report Reviewed (NAD) Cat Scan: Report Reviewed (No acute changes) Ultrasound: Pending Problem List - Problems (1) COPD (chronic obstructive pulmonary disease) Code(s): J44.9 - CHRONIC OBSTRUCTIVE PULMONARY DISEASE, UNSPECIFIED Qualifiers: COPD type: unspecified COPD Qualified Code(s): J44.9 - Chronic obstructive pulmonary disease, unspecified (2) Syncope Code(s): R55 - SYNCOPE AND COLLAPSE Qualifiers: Syncope type: vasovagal syncope Qualified Code(s): R55 - Syncope and collapse (3) Hypertensive heart disease Code(s): I11.9 - HYPERTENSIVE HEART DISEASE WITHOUT HEART FAILURE Qualifiers: Heart failure presence: without heart failure Qualified Code(s): I11.9 - Hypertensive heart disease without heart failure Assessment/Plan 04/21/2019 Echo: Normal LV and RV size and fxn LVEF 55-60%, abnl LV compliance, normal atrial sizes, mild-mod MR, mod TR RVSP 42 mmHg 1. Syncope with typical prodromal symptoms c/w neurocardiogenic syncope 2. Diastolic dysfunction, euvolemic 3. HTN heart disease 4. COPD P:1. Check orthostatic VS, monitor telemetry for pause, bradyarrhythmia, f/u carotid US 2. D/c Lasix given euvolemia, start Toprol XL 25 qd as hemodynamics tolerate 3. Consider upright tilt testing as outpatient 4. Patient previously f/u with Dr. Xiao Paz for cardiology, but prefers to f/u with our local office upon d/c 5. Thank you for consultative opportunity
--- NOTE | 2019-04-21 11:32 | ECHO ---
Name: JUSTIN DUARTE, CAMILA Exam:Adult Echocardiogram Study Date: 04/21/2019 10:03 AM Age: 78 yrs MMode/2D Measurements & Calculations IVSd: 1.2 cm Ao root diam: 2.9 cm LVIDd: 3.8 cm LA dimension: 3.3 cm LVIDs: 2.7 cm LVPWd: 1.0 cm LVPWs: 1.4 cm EDV(Teich): 63.3 ml ESV(Teich): 26.1 ml LVOT diam: 1.9 cm LAV (MOD-bp): 43.7 ml RV S Carlos Eduardo: 10.1 cm/sec Doppler Measurements & Calculations MV E max carlos eduardo: 62.1 cm/sec Ao V2 max: 157.5 cm/sec MV A max carlos eduardo: 94.1 cm/sec Ao max P.9 mmHg MV E/A: 0.66 TAYLOR(V,D): 2.1 cm2 MV dec time: 0.15 sec LV V1 max P.3 mmHg TR max carlos eduardo: 258.2 cm/sec LV V1 max: 115.0 cm/sec TR max P.5 mmHg PA V2 max: 114.0 cm/sec Med Peak E' Carlos Eduardo: 3.7 cm/sec PA max P.2 mmHg Med E/e': 16.8 Lat Peak E' Carlos Eduardo: 4.2 cm/sec Lat E/e': 14.6 Procedure A complete two-dimensional transthoracic echocardiogram was performed (2D, M-mode, Doppler and color flow Doppler). Left Ventricle The left ventricle is normal in size. Left ventricular systolic function is normal. Ejection Fraction = 55- 60%. LV diastology reveals impaired relaxation with elevated filling pressure (E/E' 17). No regional wall motion abnormalities noted. Right Ventricle The right ventricle is normal size. The right ventricular systolic function is normal. RV systolic TD I is 10 cm/s. Atria The left atrial size is normal. Right atrial size is normal. Mitral Valve The mitral valve is normal in structure and function. There is mild to moderate mitral regurgitation. Tricuspid Valve The tricuspid valve is normal in structure and function. There is moderate tricuspid regurgitation. P ulmonary artery systolic pressure is at least 42 mmHg if RA pressure is assumed 3 mmHg. Aortic Valve There is mild aortic sclerosis.;. No aortic regurgitation is present. Pulmonic Valve The pulmonic valve is not well visualized. Great Vessels The aortic root is normal size. Pericardium/Pleura There is no pericardial effusion. Interpretation Summary The left ventricle is normal in size. Left ventricular systolic function is normal. No regional wall motion abnormalities noted. Ejection Fraction = 55-60%. LV diastology reveals impaired relaxation with elevated filling pressure (E/E' 17) The right ventricular systolic function is normal. The left atrial size is normal. Right atrial size is normal. There is mild to moderate mitral regurgitation. There is moderate tricuspid regurgitation. Pulmonary artery systolic pressure is at least 42 mmHg if RA pressure is assumed 3 mmHg There is mild aortic sclerosis. There is no pericardial effusion. Previous study is not available for comparison Cedric Ahumada MD 04/21/2019 11:31 AM
--- NOTE | 2019-04-21 12:25 | CONSULT ---
Consult - text type - Consultation Consultation Note: NEUROLOGY CONSULT GREATLY APPRECIATED: Events reviewed. Cardiology consult read and appreciated. This 78 yo RH woman lives alone. Son Raul at bedside aiding in translation. Admitted after possible syncopal episode while seated at [employer]. Describes prodromal "lightheadedness" and "vision going dim." Does not recall how long she was "passed out" but remembers many parishioners coming to her aide, talking to her and then, getting into an ambulance. Also notes intermittent chest pains and palpitations, "but I take a medication for that." Head CT (reviewed): Mild cerebral atrophy with ex vacuo ventricular dilation. WBC= 11.2K UA WBC= 14 - on PO Levaquin PAVAN: Cor reg. No bruit. Neck supple. BP 150/70s without orthostatic changes. NEURO: Awake, alert, responsive. OX [facility]. Month May corrected to --. No president. MUD. Poor reversals. 07/21 recall 2 3 min. + glabella, snout, grasps CNII-CNXII: EOM's full without nystagmus. No facial. Gag ok. Motor: No drift or tremor. Sl. reduction MONIKA's on L. Min cogwheel L with reinforcement. Strength normal. Reflexes brisk throughout, except AJ's. Plantars silent. Coordination: No FTN dystaxia. Sensation: Min reduced vibration toes. Romberg - Gait: Sl flexed, sl shuffle. Can walk on heels, toes with assist x1. Impression: Syncopal episode. R/O arrythmia. Mild B/L Cerebral Dysfunction (OMS, chronic) Possibly worsened by Toxic-Metabolic Encephalopathy (UTI) Suggest: Agree with telemetry Check orthostatic BP's. Continue antibiotics and hydration Check TSH, B12, RPR PT eval for gait safety Trial Management Associate for home safety check Thank you very much, Gavin Gaming MD
[2019-04-21] MEDS: DOCUSATE SODIUM 100 MG CAPSULE (FP) PO SCH (12:49)
[2019-04-21] MEDS: LORATADINE 10 MG TABLET PO SCH (12:49)
[2019-04-21] MEDS: ASPIRIN COATED 81 MG TABLET.EC PO SCH (12:50)
[2019-04-21] MEDS: ENOXAPARIN NA (PORCINE) 40 MG/0.4 ML DISP.SYRIN SQ SCH (12:50)
[2019-04-21] MEDS ORDERED: SODIUM CHLORIDE 0.45% 1,000 ML IV SCH (16:45)
[2019-04-22 06:25] VITALS: BP 145/63; PULSE 70; TEMP 98.2
[2019-04-22 06:30] LABS: HEMATOCRIT 36.1 % (32.4-45.2); HEMOGLOBIN 12.5 GM/dL (10.7-15.3); MCH 29.1 pg (25.7-33.7); MCHC 34.4 g/dl (32.0-36.0); MEAN CELL VOLUME 84.6 fl (80-96); PLATELET COUNT 273 K/MM3 (134-434); RBC 4.27 M/mm3 (3.60-5.2); RDW 14.4 % (11.6-15.6)
[2019-04-22 07:34] LABS: BLOOD UREA NITROGEN 12.4 mg/dL (7-18); CALCIUM 8.9 mg/dL (8.5-10.1); CREATININE 0.8 mg/dL (0.55-1.3); POTASSIUM 3.9 mmol/L (3.5-5.1)
--- NOTE | 2019-04-22 08:03 | DS ---
Physical Exam: SUBJECTIVE: Pt without any symptoms overnight or today. Pt feels better. Has not been taking her home medications noted in her purse at bedside. Pt is ready to go home. OBJECTIVE: Vital Signs Period Temp Pulse Resp BP Sys/De Souza Pulse Ox Last 24 Hr 97.9 F-98.7 F 65-81 20-20 127-177/58-93 97-98 PHYSICAL EXAM GENERAL: The patient is awake, alert, and fully oriented, in no acute distress. HEENT: NC/AT, FABIAN, EOMI without nystagmus, MMM. NECK: No JVD LUNGS: CTA bilaterally, no wheezes, no crackles, no accessory muscle use. HEART: RRR, S1, S2 without murmur, rub or gallop. ABDOMEN: Soft, nontender, nondistended, normoactive bowel sounds, no guarding EXTREMITIES: 2+ DP pulses, warm, well-perfused, no edema. PSYCH: Normal mood, normal affect. SKIN: Warm, dry, no rashes or lesions noted. LABS Laboratory Results - last 24 hr 04/22/19 04/22/19 05:36 05:36 WBC 7.0 RBC 4.27 Hgb 12.5 Hct 36.1 MCV 84.6 MCH 29.1 MCHC 34.4 RDW 14.4 Plt Count 273 MPV 8.0 Sodium 141 Potassium 3.9 Chloride 110 H Carbon Dioxide 27 Anion Gap 5 L BUN 12.4 Creatinine 0.8 Est GFR (CKD-EPI)AfAm 80.70 Est GFR (CKD-EPI)NonAf 69.63 Random Glucose 88 Calcium 8.9 Vitamin B12 370 TSH 0.95 Imaging: Echocardiogram: Interpretation Summary The left ventricle is normal in size. Left ventricular systolic function is normal. No regional wall motion abnormalities noted. Ejection Fraction = 55-60%. LV diastology reveals impaired relaxation with elevated filling pressure (E/E' 17) The right ventricular systolic function is normal. The left atrial size is normal. Right atrial size is normal. There is mild to moderate mitral regurgitation. There is moderate tricuspid regurgitation. Pulmonary artery systolic pressure is at least 42 mmHg if RA pressure is assumed 3 mmHg There is mild aortic sclerosis. There is no pericardial effusion. Head CT: Impression: [id number] volume loss without CT evidence of acute intracranial pathology. Correlate increased to determine further evaluation and follow-up. Carotid Duplex: IMPRESSION: Mild atherosclerotic disease with no evidence of hemodynamically significant stenoses HOSPITAL COURSE: Date of Admission:04/20/19 Date of Discharge: 04/22/19 Pt admitted on 04/20/19 due to a syncopal episode. Pt was monitored on telemetry without any notable alarms. Carotid dopplers and echocardiogram was performed which also resulted in nonsignificant findings as above. Pt's Lasix was held during her hospitalization and she was hydrated with IV NS. Pt was evaluated by Cardiology and neurology who felt this was likely dehydration related. Pt is being discharged with instructions to stop her Lasix and use Metoprolol 25mg qdaily for heart rate control. Minutes to complete discharge: 33 Discharge Summary Problems reviewed: Yes Reason For Visit: SEIZURE\SYNCOPE Current Active Problems COPD (chronic obstructive pulmonary disease) (Acute) Hypertensive heart disease (Acute) Seizure (Acute) Syncope (Acute) Condition: Improved - Instructions Diet, Activity, Other Instructions: You were seen here for your dizziness and fainting. You had a heart monitor while here and an ultrasound of your heart which showed everything is normal. You were assessed by neurology and cardiology and they believe most of your symptoms are related to likely dehydration MEDICATIONS: Please hold your Lasix until you visit your primary care doctor in 3-5 days You were started on Metoprolol 25mg DAILY for your heart dysfunction Continue the rest of medications as you have been before. Follow-up: Please follow-up with Dr. Herman in 3-5 days to update them on your care and regarding your lasix Please follow-up with Dr. 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 for a possible long- term Holter Monitor Referrals: Haley Herman [Other] (3-5 days) Cedric Ahumada MD [Staff Physician] - Disposition: HOME - Home Medications Comprehensive Discharge Medication List: Ambulatory Orders Aspirin [Aspirin EC] 81 mg PO DAILY 04/20/19 Docusate Sodium [Docusate 100 mg] 100 mg PO DAILY 04/20/19 Loratadine 10 mg PO DAILY 04/20/19 Umeclidinium [place] [Incruse Ellipta] 62.5 mcg IH DAILY 04/20/19 Metoprolol Succinate [Toprol XL -] 25 mg PO DAILY #30 tab.sr.24h 04/22/19 levoFLOXacin [Levaquin -] 250 mg PO DAILY@0600 #5 tablet 04/22/19 This patient is new to me today: Yes Date on this admission: 04/22/19 Emergency Visit: Yes ED Registration Date: 04/20/19 Care time: The patient presented to the Emergency Department on the above date and was hospitalized for further evaluation of their emergent condition. Critical Care patient: No - Discharge Referral Referred to [facility] Med [facility] No ATTENDING PHYSICIAN STATEMENT I saw and evaluated the patient. I reviewed the resident's note and discussed the case with the resident. I agree with the resident's findings and plan as documented. SUBJECTIVE: OBJECTIVE: ASSESSMENT AND PLAN:
--- NOTE | 2019-04-22 08:26 | PN ---
Teaching Attending Note Name of Resident: Raffi Whitaker ATTENDING PHYSICIAN STATEMENT I saw and evaluated the patient. I reviewed the resident's note and discussed the case with the resident. I agree with the resident's findings and plan as documented. SUBJECTIVE: Patient has no complaints. OBJECTIVE: Vital Signs Period Temp Pulse Resp BP Sys/De Souza Pulse Ox Last 24 Hr 97.9 F-98.7 F 65-81 20-20 127-177/58-93 97-98 HEART: S1S2, RRR LUNGS: Clear ABDOMEN: Obese, soft, non-tender, non-distended, normal BS EXTREMITIES: No edema Laboratory Results - last 24 hr 04/22/19 04/22/19 05:36 05:36 WBC 7.0 RBC 4.27 Hgb 12.5 Hct 36.1 MCV 84.6 MCH 29.1 MCHC 34.4 RDW 14.4 Plt Count 273 MPV 8.0 Sodium 141 Potassium 3.9 Chloride 110 H Carbon Dioxide 27 Anion Gap 5 L BUN 12.4 Creatinine 0.8 Est GFR (CKD-EPI)AfAm 80.70 Est GFR (CKD-EPI)NonAf 69.63 Random Glucose 88 Calcium 8.9 Vitamin B12 370 TSH 0.95 Current Medications Generic Name Dose Route Start Last Admin Trade Name Freq PRN Reason Stop Dose Admin Aspirin 81 mg 04/21/19 10:00 04/21/19 12:50 Ecotrin - PO 81 mg DAILY ABRAM Administration Docusate Sodium 100 mg 04/21/19 10:00 04/21/19 12:49 Colace - PO 100 mg DAILY ABRAM Administration Enoxaparin Sodium 40 mg 04/21/19 10:00 04/21/19 12:50 Lovenox - SQ 40 mg DAILY ABRAM Administration Sodium Chloride 1,000 mls @ 42 mls/hr 04/21/19 16:45 04/21/19 19:52 1/2 Normal Saline IV 42 mls/hr ASDIR ABRAM Administration Levofloxacin 250 mg 04/20/19 15:15 04/22/19 06:20 Levaquin - PO 250 mg DAILY@0600 ABRAM Administration Loratadine 10 mg 04/21/19 10:00 04/21/19 12:49 Claritin - PO 10 mg DAILY ABRAM Administration Metoprolol Succinate 25 mg 04/22/19 10:00 Toprol Xl - PO DAILY ABRAM Non-Formulary Medication 62.5 mcg 04/21/19 10:00 Umeclidinium [place] [Incruse Ellipta] IH DAILY ABRAM ASSESSMENT AND PLAN: This is an 78 year old woman with a history of HTN, CHF, COPD who presented to the ED after passing out while sitting in religious. The episode was associated with urinary incontinence and was preceded by lightheadedness. 1. Syncope - Doubt seizure - No arrhythmias noted on telemetry - Head CT shows mild to moderate volume loss - Echo shows normal LV, LVEF 55-60%, impaired LV relaxation, normal RV, mild to moderate MR, moderate TR - Carotid dopplers show mild atherosclerotic disease with no hemodynamically significant stenosis 2. Possible UTI - Continue empiric Levaquin - Urine culture not sent 3. Dehydration - Lasix discontinued - Looks better after IV fluid 4. HTN with hypertensive heart disease and diastolic dysfunction - Lasix discontinued secondary to dehydration - Toprol XL started 5. COPD - Stable - Continue Incruse 6. Obesity with BMI 35.2 7. Disposition - Ok for discharge home to follow up with PCP, cardiology
[2019-04-22] MEDS: ASPIRIN COATED 81 MG TABLET.EC PO SCH (09:15)
[2019-04-22] MEDS: ENOXAPARIN NA (PORCINE) 40 MG/0.4 ML DISP.SYRIN SQ SCH (09:15)
[2019-04-22] MEDS: LORATADINE 10 MG TABLET PO SCH (09:15)
[2019-04-22] MEDS: DOCUSATE SODIUM 100 MG CAPSULE (FP) PO SCH (09:16)
[2019-04-22] MEDS ORDERED: metoPROLOL SUCCINATE 25 MG TAB.SR.24H (FP) PO SCH (10:00)
== END 2019-04-22 09:50 | disposition home or self-care (01) ==
LOC: JER 12:27 → JERBED 14:54 → J4W 15:52
PROVIDERS: ADMIT Internal Medicine; ATTEND Internal Medicine
PROC: 3E0337Z Introduction of Electrolytic and Water Balance Substance into Peripheral Vein, Percutaneous Approach (ICD-10-PCS; principal; 2019-04-20)
PROC: 3E013GC Introduction of Other Therapeutic Substance into Subcutaneous Tissue, Percutaneous Approach (ICD-10-PCS; 2019-04-20)
PROC: 3E0234Z Introduction of Serum, Toxoid and Vaccine into Muscle, Percutaneous Approach (ICD-10-PCS; 2019-04-20)
DX: R55 Syncope and collapse (principal); I11.0 Hypertensive heart disease with heart failure; I11.9 Hypertensive heart disease without heart failure; I50.9 Heart failure, unspecified; J44.9 Chronic obstructive pulmonary disease, unspecified; N39.0 Urinary tract infection, site not specified; K59.00 Constipation, unspecified; E86.0 Dehydration; E66.9 Obesity, unspecified; Z68.35 Body mass index [BMI] 35.0-35.9, adult; F09 Unspecified mental disorder due to known physiological condition; Z82.49 Family history of ischemic heart disease and other diseases of the circulatory system; Z79.82 Long term (current) use of aspirin; Z98.61 Coronary angioplasty status; Z23 Encounter for immunization
CPT/HCPCS: 36415; 70450-TC; 71045-TC-FY; 80048; 80053; 81003; 82607; 83605; 83735; 83880; 84443; 84484; 85025; 85027; 86593; 87086; 90471; 93005; 93010; 93306-TC; 93880-TC; 95816; 96360; 96372; 97116-GP; 97161-GP; 99284-25; G0378; Q2036

== ENCOUNTER 2020-12-06 09:38 | Emergency (ER) | payer MEDICARE, OTHER ==
[2020-12-06] MEDS ORDERED: DEXAMETHASONE SOD PHOSPHATE 10 MG/1 ML VIAL ONE (09:43)
[2020-12-06] MEDS ORDERED: ALBUTEROL SO4 0.083% IH SOL 2.5 MG/3 ML VIAL.NEB. NEB ONE (09:43)
[2020-12-06] MEDS ORDERED: ALBUTEROL SO4 2.5/IPRATROPIUM 0.5 INH SOL 3 ML VIAL.NEB. NEB ONE ×3 (09:43→10:19)
[2020-12-06 09:58] VITALS: PULSE 86; TEMP 98.3
[2020-12-06 10:14] VITALS: BMI 31.7
[2020-12-06 11:09] LABS: BASO % 0.5 % (0-2.0); EOS % 4.9 % (0-4.5); HEMATOCRIT 42.7 % (32.4-45.2); HEMOGLOBIN 14.3 GM/dL (10.7-15.3); LYMPH % 27.2 % (8-40); MCH 28.8 pg (25.7-33.7); MCHC 33.5 g/dl (32.0-36.0); MEAN CELL VOLUME 85.9 fl (80-96); MONO % 3.3 % (3.8-10.2); NEUT % 64.1 % (42.8-82.8); PLATELET COUNT 323 10^3/uL (134-434); RBC 4.97 M/mm3 (3.60-5.2); RDW 14.9 % (11.6-15.6); WHITE BLOOD COUNT 10.4 K/mm3 (4.0-10.0)
[2020-12-06 11:29] LABS: CHLORIDE 108 mmol/L (98-107); SODIUM 143 mmol/L (136-145)
[2020-12-06 11:31] LABS: BLOOD UREA NITROGEN 10.6 mg/dL (7-18)
[2020-12-06 11:32] LABS: ANION GAP 6 MMOL/L (8-16); CALCIUM 9.6 mg/dL (8.5-10.1); CO2 29 mmol/L (21-32); GLUCOSE,RANDOM 102 mg/dL (74-106)
[2020-12-06 11:33] LABS: ALBUMIN 3.9 g/dl (3.4-5.0)
[2020-12-06 11:34] LABS: CREATININE 0.8 mg/dL (0.55-1.3)
[2020-12-06 11:35] LABS: SGOT/AST 17 U/L (15-37); SGPT/ALT 21 U/L (13-61)
[2020-12-06 11:36] LABS: BILIRUBIN,TOTAL 0.4 mg/dL (0.2-1); TOT PROT 7.7 g/dl (6.4-8.2)
[2020-12-06 11:37] LABS: ALK PHOS 103 U/L (45-117)
[2020-12-06 12:38] VITALS: BP 127/87
== END 2020-12-06 12:30 | disposition home or self-care (01) ==
LOC: JER 09:38
PROC: 3E0F7GC Introduction of Other Therapeutic Substance into Respiratory Tract, Via Natural or Artificial Opening (ICD-10-PCS; principal; 2020-12-06)
DX: R06.02 Shortness of breath (principal); J45.901 Unspecified asthma with (acute) exacerbation
CPT/HCPCS: 36415; 71045-TC-FY; 80053; 82550; 84484; 85025; 93005; 93010; 99285-25